=== PATIENT | male | born 1950 | race Caucasian/White ===

== ENCOUNTER 2023-08-03 05:26 | Inpatient (IN) | payer MEDICARE, OTHER ==
[2023-07-25 14:53] LABS: ALBUMIN 3.9 G/DL (3.4-5.0); ALBUMIN/GLOBULIN RATIO 1.1 (1.1-1.5); ALKALINE PHOSPHATASE 56 IU/L (46-116); BLOOD UREA NITROGEN 14 MG/DL (7-18); BUN/CREATININE RATIO 14.4 (10.0-20.0); CHLORIDE 105 MMOL/L (99-107); CREATININE 0.97 MG/DL (0.60-1.10); PRE OP ALT 23 U/L (30-65); PRE OP ANION GAP 8 (8-16); PRE OP AST 16 U/L (10-37); PRE OP BILIRUB, TOTAL 0.8 MG/DL (0.0-1.0); PRE OP GLUCOSE 104 MG/DL (70-104); PRE OP POTASSIUM 3.7 MMOL/L (3.4-5.1); PRE OP SODIUM 141 MMOL/L (135-145); TOTAL CARBON DIOXIDE 27.8 MMOL/L (24-32); TOTAL PROTEIN 7.5 G/DL (6.4-8.2); eGFR 76 ML/MIN
[2023-07-25 14:55] LABS: BASOPHILS # (AUTO) 0.1 X10'3 (0-0.2); BASOPHILS % (AUTO) 0.6 % (0-1); EOSINOPHILS # (AUTO) 0.1 X10'3 (0-0.9); EOSINOPHILS % (AUTO) 1.5 % (0-6); LYMPHOCYTES # (AUTO) 2.2 X10'3 (1.1-4.8); LYMPHOCYTES % (AUTO) 24.8 % (21-51); MEAN CORPUSCULAR HEMOGLOBIN 31.9 PG (27.0-31.0); MEAN CORPUSCULAR HGB CONC 34.2 g/dL (33.0-36.5); MEAN CORPUSCULAR VOLUME 93.3 FL (78-98); MEAN PLATELET VOLUME 9.8 FL (7.4-10.4); MONOCYTES # (AUTO) 0.6 X10'3 (0-0.9); MONOCYTES % (AUTO) 7.4 % (2-12); NEUTROPHILS # (AUTO) 5.7 X10'3 (1.8-7.7); NEUTROPHILS % (AUTO) 65.7 % (42-75); PRE OP HEMATOCRIT 49.4 % (42.0-52.0); PRE OP HEMOGLOBIN 16.9 g/dL (14.0-17.9); PRE OP PLATELET COUNT 143 X10'3 (140-440); PRE OP WHITE BLOOD COUNT 8.7 10'3 (4.8-10.8)
[~2023-08-03] VITALS: Ht 172.7 cm; Wt 79.0 kg
[2023-08-03] VITALS (27 sets, daily range): BP systolic 118–158; BP diastolic 64–101; PULSE 75–102; RESP 12–18; TEMP 97.1–98.1; O2SAT 92–100
[~2023-08-03 05:26] MED LIST: FLO0.4C PO; LISI40TA13 PO
[2023-08-03] MEDS: cefazolin 2gm/D5W 100mL 100 ML IV ONE (05:30)
[2023-08-03] MEDS: tranexamic acid inj. 1,000 MG in normal saline IV soln 100ML IV ONE (05:30)
[2023-08-03] MEDS: vancomycin 1,500 MG in NS 300ml IV soln IV ONE (06:15)
[2023-08-03] MEDS: ringers solution, lacted 1,000 ML IV SCH ×2 (06:15→10:45)
[2023-08-03] MEDS: famotidine 20mg tablet PO ONE (06:15)
[2023-08-03] MEDS ORDERED: sevoflurane 250ml liquid IH ONE (07:37)
[2023-08-03] MEDS ORDERED: midazolam 1 mg/ML 2ml injection ONE (07:46)
[2023-08-03] MEDS ORDERED: fentaNYL /PF 50mcg/ml 5ml ampule ONE (07:48)
[2023-08-03] MEDS ORDERED: propofol inj 20 ML IV ONE (08:18)
[2023-08-03] MEDS ORDERED: ePHEDrine 50MG/ML INJ. ONE (08:18)
[2023-08-03] MEDS ORDERED: 0.9 % SODIUM CHLORIDE 10 ML VIAL ONE (08:18)
[2023-08-03] MEDS ORDERED: LIDOcaine 2% (20mg/ml) 5ml vial ONE (08:18)
[2023-08-03] MEDS ORDERED: dexamethasone sod phosphate 4mg/ml inj. ONE (08:27)
[2023-08-03] MEDS ORDERED: ondansetron/PF 4mg/2ml inj ONE (08:27)
[2023-08-03] MEDS: epiNEPHrine 1 mg/ml inj ONE (08:55)
[2023-08-03] MEDS: morphine 10mg/ml inj. ONE (08:57)
[2023-08-03] MEDS: ketorolac trometh. 30mg/ml inj. ONE (08:57)
[2023-08-03] MEDS: ROPIVAcaine 0.5% (5mg/ml) 30ml vial ONE (08:58)
[2023-08-03] MEDS: vancomycin 1,000mg inj ONE (09:00)
[2023-08-03] MEDS ORDERED: ROPIVAcaine 0.5% (5mg/ml) 30ml vial ONE (10:01)
[2023-08-03] MEDS ORDERED: morphine 10mg/ml inj. ONE (10:01)
[2023-08-03] MEDS ORDERED: naloxone 0.4 mg/ml inj IV PRN (10:25)
[2023-08-03] MEDS ORDERED: magnesium hydroxide 30ml (MOM) UD suspension PO PRN (10:25)
[2023-08-03] MEDS ORDERED: acetaminophen 325mg tablet PO PRN (10:25)
[2023-08-03] MEDS ORDERED: diphenhydrAMINE 25mg capsule PO PRN ×2 (10:25)
[2023-08-03] MEDS ORDERED: HYDROmorphone 1 mg/ml syringe IV PRN (10:25)
[2023-08-03] MEDS ORDERED: oxyCODONE IR 5mg (immed. release) tablet PO PRN (10:25)
[2023-08-03] MEDS ORDERED: bisacodyl 10mg suppository rectal RC PRN (10:25)
[2023-08-03] MEDS ORDERED: HYDROmorphone inj. 0.5 MG/0.5 ML DISP.SYRIN IV PRN (10:25)
[2023-08-03] MEDS ORDERED: morphine 2 MG/ML inj. syringe IV PRN (10:45)
[2023-08-03] MEDS ORDERED: ondansetron/PF 4mg/2ml inj IV PRN (10:45)
[2023-08-03] MEDS ORDERED: hydrALAZINE 20mg/ml inj. IV PRN (10:45)
[2023-08-03] MEDS ORDERED: labetalol 20mg/4ml (5mg/ml) syringe IV PRN (10:45)
[2023-08-03] MEDS ORDERED: ROPIVAcaine 0.2% (10 MG/5 ML) BOLUS INJECTION ADDCANAL PRN (10:45)
[2023-08-03] MEDS ORDERED: proCHLORperazine 10 MG/2 ml inj IV PRN (10:45)
[2023-08-03] MEDS ORDERED: meperidine/PF 25mg/ml syringe IV PRN ×3 (10:45)
[2023-08-03] MEDS ORDERED: morphine 4 MG/ML inj SYRINge IV PRN (10:45)
[2023-08-03] MEDS: ROPIVAcaine 0.2%/PF PUMP/bolus 545 ML ADDCANAL SCH (11:47)
[2023-08-03] MEDS: ketorolac tromethamine 15mg/ml inj. IV ONE (11:48)
[2023-08-03] MEDS: acetaminophen 1,000mg/100ml IV 100 ML IV ONE (11:49)
[2023-08-03] MEDS: gabapentin 300mg capsule PO SCH (13:00)
[2023-08-03] MEDS: acetaminophen 325mg tablet PO SCH (14:00)
[2023-08-03] MEDS ORDERED: NORMAL SALINE IV ONE (15:00)
[2023-08-03] MEDS ORDERED: TRANEXAMIC ACID IV ONE (15:00)
[2023-08-03] MEDS: ceFAZolin/D5W- 1GM premix 50 ML IV SCH (17:49)
[2023-08-03] MEDS: oxyCODONE IR 5mg (immed. release) tablet PO PRN (17:51)
[2023-08-03] MEDS: TRANEXAMIC ACID IV ONE (18:16)
[2023-08-03] MEDS: NORMAL SALINE IV ONE (18:16)
[2023-08-03] MEDS: potassium Cl 20mEq in NS 1,000 ML IV SCH (18:16)
[2023-08-03] MEDS: sennosides 8.6mg tablet PO SCH (20:40)
[2023-08-03] MEDS: vancomycin/NS 1 GM ADD-VANTAGE 250 ML IV SCH (22:08)
[2023-08-03] MEDS: ondansetron/PF 4mg/2ml inj IV PRN (22:08)
[2023-08-04 02:00] VITALS: BP 129/82; PULSE 80; RESP 14; TEMP 97.4; O2SAT 97
[2023-08-04 06:00] VITALS: BP 116/78; PULSE 71; RESP 16; TEMP 98.2; O2SAT 96
[2023-08-04] MEDS: tamsulosin 0.4mg capsule PO SCH (08:45)
[2023-08-04 08:46] VITALS: BP_SYST 158; PULSE 76
[2023-08-04] MEDS: enoxaparin 40mg/0.4ml syringe SQ SCH (08:46)
[2023-08-04] MEDS: lisinopril 20mg tablet PO SCH (08:46)
[2023-08-04] MEDS ORDERED: celeCOXIB 100mg capsule PO SCH (20:00)
[2023-08-05] MEDS ORDERED: acetaminophen 325mg tablet PO PRN (10:25)
== END 2023-08-04 09:55 | disposition home or self-care (01) | DRG 489 ==
LOC: PAS IN 05:26 → ORTHO 4S 15:15
PROVIDERS: ADMIT Orthopaedic Surgery; ATTEND Orthopaedic Surgery
PROC: 0SUV09Z Supplement Right Knee Joint, Tibial Surface with Liner, Open Approach (ICD-10-PCS; 2023-08-03)
PROC: 0SUC09C Supplement Right Knee Joint with Liner, Patellar Surface, Open Approach (ICD-10-PCS; 2023-08-03)
PROC: 0JH80WZ Insertion of Totally Implantable Vascular Access Device into Abdomen Subcutaneous Tissue and Fascia, Open Approach (ICD-10-PCS; 2023-08-03)
PROC: 0SBC0ZZ Excision of Right Knee Joint, Open Approach (ICD-10-PCS; 2023-08-03)
PROC: 3E0T3BZ Introduction of Anesthetic Agent into Peripheral Nerves and Plexi, Percutaneous Approach (ICD-10-PCS; 2023-08-03)
PROC: 0SPC09Z Removal of Liner from Right Knee Joint, Open Approach (ICD-10-PCS; principal; 2023-08-03 07:37)
DX: T84.022A Instability of internal right knee prosthesis, initial encounter (principal); I10 Essential (primary) hypertension; N40.0 Benign prostatic hyperplasia without lower urinary tract symptoms; Y83.1 Surgical operation with implant of artificial internal device as the cause of abnormal reaction of the patient, or of later complication, without mention of misadventure at the time of the procedure; Y92.89 Other specified places as the place of occurrence of the external cause; Z87.442 Personal history of urinary calculi
CPT/HCPCS: 36415; 80053; 82948; 85025; 87070; 87075; 87077; 87081; 97110; 97116; 97161; 97530; A4215; A4615; A4618; A6253; A6258; A7000; C1713; C1758; C1776; C9250; G0378; J0131; J0171; J0690; J1100; J1650; J1885; J2250; J2274; J2405; J2704; J2795; J3010; J3370; J3480; J3490; J7120

== ENCOUNTER 2023-08-11 11:41 | Emergency (ER) | payer MEDICARE, OTHER ==
[~2023-08-11] VITALS: Ht 172.7 cm; Wt 81.6 kg
[2023-08-11 12:55] LABS: BASOPHILS % (AUTO) 0.4 % (0-1); EOSINOPHILS # (AUTO) 0.2 X10'3 (0-0.9); EOSINOPHILS % (AUTO) 2.4 % (0-6); HEMOGLOBIN 14.5 g/dl (14.0-17.9); LYMPHOCYTES # (AUTO) 2.1 X10'3 (1.1-4.8); LYMPHOCYTES % (AUTO) 22.3 % (21-51); MEAN CORPUSCULAR HEMOGLOBIN 31.5 PG (27.0-31.0); MEAN CORPUSCULAR HGB CONC 33.6 g/dL (33.0-36.5); MEAN CORPUSCULAR VOLUME 93.7 FL (78-98); MEAN PLATELET VOLUME 8.3 FL (7.4-10.4); MONOCYTES # (AUTO) 0.9 X10'3 (0-0.9); MONOCYTES % (AUTO) 9.6 % (2-12); NEUTROPHILS # (AUTO) 6.1 X10'3 (1.8-7.7); NEUTROPHILS % (AUTO) 65.3 % (42-75); PLATELET COUNT 217 X10'3 (140-440); RED BLOOD COUNT 4.59 X10'6 (4.70-6.10); RED CELL DISTRIBUTION WIDTH 13.8 % (11.5-14.5); WHITE BLOOD COUNT 9.4 X10'3 (4.5-11.0)
[2023-08-11 13:09] LABS: ALANINE AMINOTRANSFERASE 44 U/L (12-78); ALBUMIN 3.4 G/DL (3.4-5.0); ALKALINE PHOSPHATASE 46 IU/L (46-116); ANION GAP 8 (8-16); ASPARTATE AMINO TRANSFERASE 23 U/L (10-37); BILIRUBIN,TOTAL 0.7 MG/DL (0.1-1.0); BLOOD UREA NITROGEN 16 MG/DL (7-18); CALCIUM 8.6 MG/DL (8.5-10.1); CHLORIDE 107 MMOL/L (99-107); CREATININE 0.89 MG/DL (0.60-1.10); GLUCOSE 97 MG/DL (70-104); POTASSIUM 3.6 MMOL/L (3.5-5.1); SODIUM 142 MMOL/L (135-145); TOTAL CARBON DIOXIDE 26.6 MMOL/L (24-32); TOTAL PROTEIN 6.9 G/DL (6.4-8.2); eCRCL 73 ML/MIN; eGFR 84 ML/MIN
[2023-08-11 14:49] VITALS: BP 169/106; PULSE 70; RESP 16; O2SAT 98
[2023-08-11 15:33] VITALS: TEMP 98.4
== END 2023-08-11 15:00 | disposition home or self-care (01) ==
LOC: ER 11:43
DX: M96.830 Postprocedural hemorrhage of a musculoskeletal structure following a musculoskeletal system procedure (principal); I10 Essential (primary) hypertension; Z79.899 Other long term (current) drug therapy; Z96.651 Presence of right artificial knee joint; Z98.890 Other specified postprocedural states; Y83.8 Other surgical procedures as the cause of abnormal reaction of the patient, or of later complication, without mention of misadventure at the time of the procedure; Y79.3 Surgical instruments, materials and orthopedic devices (including sutures) associated with adverse incidents; Y92.89 Other specified places as the place of occurrence of the external cause
CPT/HCPCS: 36415; 80053; 85025; 93971; 99284

== ENCOUNTER 2023-09-05 12:29 | Outpatient (CLI) | payer MEDICARE, OTHER | END 2023-09-05 23:59 | disposition home or self-care (01) | LOC: LAB 12:29 | PROVIDERS: ATTEND Orthopaedic Surgery | DX: T84.031A Mechanical loosening of internal left hip prosthetic joint, initial encounter (principal); Y83.8 Other surgical procedures as the cause of abnormal reaction of the patient, or of later complication, without mention of misadventure at the time of the procedure; Y92.89 Other specified places as the place of occurrence of the external cause | CPT/HCPCS: 87070; 87075 ==

== ENCOUNTER → 2023-11-03 | Day surgery (SDC) | payer MEDICARE, OTHER ==
[~2023-11-03] MED LIST changes: +AMLO2.5T2 PO; +VANC25SO PO
== END | disposition home or self-care (01) ==
LOC: SSTAY O 11:16
PROVIDERS: ATTEND Internal Medicine
DX: T84.50XA Infection and inflammatory reaction due to unspecified internal joint prosthesis, initial encounter (principal); Y79.2 Prosthetic and other implants, materials and accessory orthopedic devices associated with adverse incidents; Y92.89 Other specified places as the place of occurrence of the external cause
CPT/HCPCS: 36569; 36573; 76942; C1751

== ENCOUNTER 2025-01-07 14:23 | Outpatient (CLI) | payer MEDICARE, OTHER ==
[~2025-01-07 14:23] MED LIST changes: -FLO0.4C PO; +TAMS-55 PO
--- NOTE | 2025-01-07 20:08 | RADIOLOGY REPORT ---
EXAM: CT CT LOWER EXTREMITY INDICATION: PAIN IN RIGHT KNEE TECHNIQUE: Axial images of right knee have been obtained along with coronal and sagittal reformatted images. All CT scans at this facility use dose modulation, iterative reconstruction, and/or weight ba sed dosing when appropriate to reduce radiation dose to as low as reasonably achievable. COMPARISON: None FINDINGS: BONES: Right total knee arthroplasty. No osseous lucency along the hardware bone interfaces. No perih ardware fracture. Polyethylene spacer appears in place MUSCLES: No abnormal attenuation. JOINT SPACES: Medium-sized knee joint effusion. Minimal surrounding subcutaneous tissue edema of the anterior aspect of the knee. No external subcutaneous drainable fluid collection. TENDONS/LIGAMENTS: Intact. OTHER: None. IMPRESSION: 1. Right total knee arthroplasty. No osseous lucency along the hardware bone interfaces. No perihardw are fracture. Polyethylene spacer appears in place. 2. Medium-sized knee joint effusion. Minimal surrounding subcutaneous tissue edema of the anterior as pect of the knee.
== END 2025-01-07 23:59 | disposition home or self-care (01) ==
LOC: RAD 14:23
PROVIDERS: ATTEND Orthopaedic Surgery
DX: M25.461 Effusion, right knee (principal); M25.561 Pain in right knee; Z96.651 Presence of right artificial knee joint
CPT/HCPCS: 73700